=== PATIENT | female | born 1975 | race Caucasian/White ===

== ENCOUNTER 2025-02-03 10:14 | Emergency (ER) | payer OTHER, SELFPAY ==
[2025-02-03 10:24] VITALS: BP 116/75
[2025-02-03 10:40] LABS: Hematocrit 34.0 % (37.0-47.0); Hemoglobin 11.0 g/dL (12.0-16.0); Mean Corp Hgb Conc. 32.4 g/dL (33.0-37.0); Mean Corpuscular Volume 94.4 fL (81.0-99.0); Nucleated Red Blood Cells % 0 %; Platelet Count 276 10^3/uL (130-400); Red Cell Dist. Width 13.3 % (11.5-14.5)
--- NOTE | 2025-02-03 10:52 | ED.GENMED ---
History of Present Illness
General
Chief Complaint: Seizure
Source: patient
Exam Limitations: none
Time Seen by Provider: 02/03/25 10:36
History of Present Illness
History of Present Illness:
49-year-old female presents from [facility] with multiple seizures. She has a history of seizures is on gabapentin 900 mg 3 times a day as well as Keppra 750 mg twice a day. She also takes lithium. She states she has been sick with URI
symptoms for the past 4 days without a fever but notes a productive cough. Her seizures are becoming more frequent than usual. No other complaints at this time
Phy Exam
Physical Exam
Physical Exam:
General: Well-appearing female no acute respiratory distress
HEENT: Normal cephalic atraumatic pupils equal round reactive to light mucosa moist no bite mcwilliams on the tongue
Heart: Regular rate and rhythm
Lungs: Clear no wheeze
Neurologic exam: Alert and oriented x 3 no facial asymmetry conversing appropriately
Extremities: No cyanosis
Course
Orders/Labs/Results
Orders:
Orders
02/03/25 10:27
Complete Blood Count/With Diff Urgent
Comprehensive Metabolic Panel Urgent
Keppra (Levetiracetam) [S] Urgent
[place] Urgent
02/03/25 10:46
CR Chest - 2 Views Urgent
Comment:
Reason For Exam: cough
02/03/25 11:33
COVID-19 Antigen Urgent
Source: Nasal Swab
Abnormal Lab Results
02/03/25
10:27
WBC 11.5 H 10^3/uL
(4.8-10.8)
RBC 3.60 L 10^6/uL
(4.20-5.40)
Hgb 11.0 L g/dL
(12.0-16.0)
Hct 34.0 L %
(37.0-47.0)
MCHC 32.4 L g/dL
(33.0-37.0)
Absolute Neuts (auto) 8.5 H 10^3/uL
(1.4-6.5)
Absolute Monos (auto) 0.9 H 10^3/uL
(0.1-0.6)
Lymphocytes % 15.1 L %
(20.5-51.1)
02/03/25 10:27
02/03/25 10:27
Vital Signs
Initial and Last Documented VS:
Initial Vital Signs
Temp
97.8 F
02/03/25 10:15
Last Documented Vital Signs
Temp Pulse Resp BP Pulse Ox
97.8 F 95 20 115/72 93
02/03/25 10:15 02/03/25 15:15 02/03/25 15:15 02/03/25 15:00 02/03/25 14:45
MDM/Problems Addressed
Differential Diagnosis Includes:
Patient has had more seizures than usual. She has a history of seizures. Will check lithium and Keppra levels. She has URI symptoms consider URI versus COVID with pneumonia. X-ray and COVID test pending.
*Pulse Oximetry
SaO2: 96
Oxygen Mode of Delivery: Room air
Patient hypoxic: no
*Critical Care Note
Total Time (30-74mins, 75-104mins- exclusive of procedures): Not Applicable
Update Note
Update Note:
Chest x-ray clear COVID-negative patient did rest quite a bit here she is feeling better after sleeping. Keppra levels pending. No indication for admission. Suspect URI which may be triggering a seizure. Stable for discharge with follow-up
ED Attending Note
-
Portions of this chart may have been created with voice recognition software.� Occasional wrong word or��sound alike� substitutions may have occurred due to the inherent limitations of voice recognition software.
Discharge Plan
Departure
Patient Disposition: Home (Routine Discharge)
Date of Disposition: 02/03/25
Time of Disposition: 15:51
Patient with high blood pressure during this ER visit?: No
Discharge Problem:
URI (upper respiratory infection)
Referrals:
Shar Rivera MD [Family Provider, Gastroenterology]
Activity Restrictions/Additional Instructions:
Continue current medication regimen. Return here if worse otherwise follow-up with your doctor
Interventions
Interventions:
*Risk Screen - Suicide Last Done: 02/03/25 10:15
*General Assessment Last Done: 02/03/25 10:15
*Neglect/Abuse Screening Last Done: 02/03/25 10:15
*ED COVID-19 Vaccine History Last Done: 02/03/25 10:56
ED- Cardiac Assessment Last Done: 02/03/25 10:56
ED- Neurological Assessment Last Done: 02/03/25 10:56
ED- Pulmonary Assessment Last Done: 02/03/25 10:58
Discharge Date and Time
Print Language: JAMA[place]
[2025-02-03 10:55] LABS: ALT (SGPT) 24 U/L (0-35); AST (SGOT) 23 U/L (14-36); Albumin 4.1 g/dl (3.5-5.0); Alkaline Phosphatase 61 U/L (38-126); Blood Urea Nitrogen 13 mg/dl (7-17); Calcium 8.8 mg/dl (8.4-10.2); Carbon Dioxide 28 mmol/L (22-30); Chloride 105 mmol/L (98-107); Estimated Creatinine Clearance 87 ml/min; Glucose 94 mg/dl (70-99); Potassium 4.6 mmol/L (3.5-5.1); Sodium 137 mmol/L (135-145); Total Protein 6.7 g/dl (6.3-8.2); eGFR > 60.00
[2025-02-03 11:00] VITALS: BP 97/62
[2025-02-03 12:07] LABS: COVID-19 Antigen Negative (Negative)
[2025-02-03 12:08] VITALS: BP 111/70
[2025-02-03 13:00] VITALS: BP 98/61
[2025-02-03 13:01] LABS: Lithium 0.7 mmol/L (0.6-1.2)
[2025-02-03 14:48] VITALS: BP 114/79
[2025-02-03 15:00] VITALS: BP 115/72
== END 2025-02-03 16:50 | disposition home or self-care (01) ==
LOC: EMR 10:14
PROVIDERS: Physician Assistant; EMERGENCY PHYSICIAN Emergency Medicine; FAMILY PHYSICIAN Internal Medicine Gastroenterology
DX: J06.9 Acute upper respiratory infection, unspecified (principal); G40.909 Epilepsy, unspecified, not intractable, without status epilepticus; Z11.52 Encounter for screening for COVID-19; Z79.899 Other long term (current) drug therapy
CPT/HCPCS: 99284; 71046; 80053; 80177; 80178; 85025; 87811